=== PATIENT | female | born 1975 | race African-American/Black ===

== ENCOUNTER 2016-08-02 11:29 | Emergency (ER) | payer OTHER ==
[~2016-08-02] VITALS: Ht 170.2 cm; Wt 73.6 kg
[~2016-08-02 11:29] MED LIST: ARIP5TAB9 PO; ESCI20TA PO
[2016-08-02] MEDS ORDERED: PALI39DI IM (11:34)
[2016-08-02] MEDS ORDERED: HYDROCODONE/ACETAMINOPHEN 10-325 MG TABLET PO ONE (13:00)
[2016-08-02 13:39] VITALS: BP 150/87
== END 2016-08-02 13:42 | disposition home or self-care (01) ==
LOC: EMS 11:29
DX: S52.91XA Unspecified fracture of right forearm, initial encounter for closed fracture (principal); Z87.891 Personal history of nicotine dependence; Y08.89XA Assault by other specified means, initial encounter; Y93.89 Activity, other specified; Y92.89 Other specified places as the place of occurrence of the external cause; Y99.8 Other external cause status
CPT/HCPCS: 99284

== ENCOUNTER 2024-10-01 22:32 | Emergency (ER) | payer BC, MEDICAID ==
[~2024-10-01] VITALS: Ht 170.2 cm; Wt 79.5 kg
[~2024-10-01 22:32] MED LIST changes: -ARIP5TAB9 PO; -ESCI20TA PO; +PALI39DI IM
[2024-10-02 00:11] LABS: COVID AG,FIA SOURCE NASAL SWAB
[2024-10-02 00:17] VITALS: TEMP 97.9
[2024-10-02 00:40] LABS: SARS-COV2 (COVID) ANTIGEN,FIA Negative (Negative)
[2024-10-02] MEDS: LORazepam 2 MG/ML VIAL IM ONE (06:48)
[2024-10-02] MEDS: haloperidoL LACTATE 5 MG/ML VIAL IM ONE (06:48)
[2024-10-02] MEDS: DiphenhydrAMINE HCL 50 MG/ML VIAL IM ONE (06:48)
[2024-10-02 06:52] LABS: ALCOHOL, URINE DRUG SCREEN NEGATIVE (NEGATIVE); AMPHET/METH SCREEN,URINE POSITIVE (NEGATIVE); BARBITURATE SCREEN, URINE NEGATIVE (NEGATIVE); BENZODIAZEPINES SCREEN,URINE NEGATIVE (NEGATIVE); CANNABINOID SCREEN,URINE POSITIVE (NEGATIVE); COCAINE SCREEN,URINE NEGATIVE (NEGATIVE); METHADONE SCREEN, URINE NEGATIVE (NEGATIVE); OPIATE SCREEN,URINE NEGATIVE (NEGATIVE); PHENCYCLIDINE SCREEN,URINE NEGATIVE (NEGATIVE)
[2024-10-02] MEDS ORDERED: ENOX40SY14 SQ (08:10)
[2024-10-02] MEDS ORDERED: HALO5TAB23 PO (08:10)
[2024-10-02] MEDS ORDERED: IPRA3AMP24 IH (08:12)
[2024-10-02] MEDS ORDERED: QUET50TA24 PO (08:15)
[2024-10-02] MEDS ORDERED: LEVO-72 PO (08:15)
[2024-10-02] MEDS ORDERED: XALA2.5OS OS (08:15)
[2024-10-02 11:10] LABS: RED BLOOD CELL COUNT(AUTO) 3.52 MIL/uL (4.00-5.20); WHITE BLOOD COUNT (AUTO) 6.2 K/uL (4.5-11.0)
[2024-10-02 11:11] LABS: HEMOGLOBIN 9.5 g/dL (12.0-16.0); MEAN CORPUSCULAR VOLUME 85 fL (80-100)
[2024-10-02 11:12] LABS: MEAN CORPUSCULAR HGB CONC 31.9 G/dL (31.0-37.0); NEUTROPHILS % (AUTO) 70.1 % (40.0-70.0); PLATELET COUNT (AUTO) 328 K/uL (150-450); RED CELL DISTRIBUTION WIDTH 23.8 % (11.5-14.5)
[2024-10-02 11:13] LABS: LYMPHOCYTES % (AUTO) 22.5 % (22.0-44.0)
[2024-10-02 11:14] LABS: BASOPHILS % (AUTO) 0.6 % (0.0-2.0); EOSINOPHILS % (AUTO) 1.7 % (1.0-6.0); LYMPHOCYTES # (AUTO) 1.4 K/uL (1.0-4.8); MONOCYTES % (AUTO) 5.1 % (2.0-9.0); NEUTROPHILS # (AUTO) 4.4 K/uL (1.8-7.7)
[2024-10-02 11:15] LABS: MONOCYTES # (AUTO) 0.3 K/uL (0.1-1.0)
[2024-10-02 11:16] LABS: HEMATOCRIT 29.8 % (36-46); RBC MORPHOLOGY COMMENT ABNORMAL RBC MORPH
[2024-10-02 11:30] LABS: ANION GAP 4 mmol/L (8-16); CALCIUM, TOTAL 8.4 mg/dL (8.8-10.5); CARBON DIOXIDE 25 mmol/L (22-29); CHLORIDE 110 mmol/L (98-107); GLOMERULAR FILTR. RATE CALC > 60 mL/min (>60); GLUCOSE,RANDOM 81 mg/dL (70-110); POTASSIUM 4.6 mmol/L (3.5-5.1); SODIUM SERUM 139 mmol/L (136-145); UREA NITROGEN, BLOOD 15 mg/dL (7-18)
[2024-10-02 17:13] VITALS: BP 120/66; PULSE 63; RESP 16; O2SAT 100
== END 2024-10-02 17:33 ==
LOC: EMS 23:27
DX: F25.9 Schizoaffective disorder, unspecified (principal); F41.9 Anxiety disorder, unspecified; F32.A Depression, unspecified; F17.210 Nicotine dependence, cigarettes, uncomplicated; F15.90 Other stimulant use, unspecified, uncomplicated; Z59.00 Homelessness unspecified; Z20.822 Contact with and (suspected) exposure to COVID-19
CPT/HCPCS: 99285; 87426; 80048; 84703; 85025; 36415; 80307; 96372; G0480; J1200; J1630; J2060